=== PATIENT | male | born 2000 | race Caucasian/White ===

== ENCOUNTER 2022-10-17 09:41 | Inpatient (IN) | payer BC, OTHER ==
[2022-10-17] MEDS ORDERED: Boostrix 0.5 ML (Tdap) VIAL (>/=7 yrs of age) ONE (09:43)
[2022-10-17] MEDS ORDERED: Fentanyl 100 MCG/2 ML VIAL ONE (09:43)
[2022-10-17] MEDS ORDERED: CEFAZOLIN 2 GM VIAL ONE (09:43)
[2022-10-17 10:09] LABS: #Basophils 0.1 thou/uL (0.0-0.2); #Lymphocytes 1.8 thou/uL (1.20-3.40); #Monocytes 0.4 thou/uL (0.11-0.59); #Neutrophils 8.6 thou/uL (1.40-6.50); %Basophils 0.6 % (0.0-1.0); %Eosinophils 0.1 % (0.0-10.0); %Lymphocytes 16.3 % (21.0-51.0); Hemoglobin 13.2 g/dL (14.0-18.0); Mean Corpuscular HGB CONC 33.8 g/dL (32.0-36.0); Mean Corpuscular Hemoglobin 31.2 pg (27.0-31.0); Mean Corpuscular Volume 92.1 fl (78.0-98.0); Mean Platelet Volume 8.3 fL (7.4-10.4); Platelet Count 310 10x3/uL (130-400); RBC Distribution Width 11.3 % (11.5-14.5); Red Blood Cell (RBC) Count 4.23 mill/uL (4.70-6.10); White Blood Cell (WBC) Count 10.9 10x3/uL (4.8-10.8)
[2022-10-17] MEDS ORDERED: Ondansetron PF 4 MG/2 ML Vial ONE ×2 (10:23→11:51)
[2022-10-17] MEDS ORDERED: Ketamine 50 MG/ML (10ML VIAL) ONE ×2 (10:23→11:18)
[2022-10-17 10:26] LABS: Prothrombin Time 14.1 sec (12.0-14.7)
[2022-10-17 10:32] LABS: Acetaminophen Less than 10.0 mcg/mL (10.0-30.0); Alcohol Less than 10 mg/dL (Less than 10); Salicylate Less than 8.0 mg/dL (15.0-30.0)
[2022-10-17 10:33] LABS: Actual Bicarbonate (HCO3v) 17 mEq/L (22-28); Analyzer IN Cardio ER; Base Excess -9.3 mEq/L (-2.0 to +3.0); Calcium, Ionized (venous) 1.07 mmol/L (1.16-1.32); Chloride (VBG) 93 mmol/L (98-106); Hemoglobin (Hb) 10.6 g/dL (13.2-17.3); Potassium (VBG) 4.98 mmol/L (3.70-5.30); Sodium 127.3 mmol/L (133-146); pH (venous) 7.26 (7.32-7.43)
[2022-10-17 10:35] LABS: ALT (SGPT) 13 U/L (8-55); AST (SGOT) 13 U/L (5-34); Albumin 3.7 g/dL (3.5-5.0); Alkaline Phosphatase 73 U/L (40-110); Anion Gap 25 mmol/L (10-20); BUN (Urea Nitrogen) 14 mg/dL (8.9-20.6); Bilirubin, Total 0.9 mg/dL (0.2-1.2); Calc. Creatinine Clearance 0 mL/min (70-130); Carbon Dioxide 16 mmol/L (22-29); Chloride 95 mmol/L (98-107); Estimated GFR 81; Globulin 2.2 g/dL (2.4-3.5); Potassium 4.5 mmol/L (3.5-5.1); Protein, Total 5.9 g/dL (6.0-8.3); Sodium 131 mmol/L (136-145)
[2022-10-17 10:40] LABS: Glucose 738 mg/dL (70-105)
[2022-10-17] MEDS ORDERED: HYDROmorphone 0.5 MG/0.5 ML SYRINGE ONE ×5 (10:54→15:39)
[2022-10-17] MEDS ORDERED: INSULIN REGULAR IN 0.9 % NACL 100 UNIT/100 ML BAG ONE (11:03)
[2022-10-17] MEDS ORDERED: Midazolam HCl 2 mg/2 ml Vial ONE (11:18)
[2022-10-17] MEDS ORDERED: fentaNYL PF 100 MCG/2 ML SYRINGE ONE (11:18)
[2022-10-17] MEDS ORDERED: Iopamidol-370 76% 500 ML 1 ML ONE (11:36)
[2022-10-17] MEDS ORDERED: PROPOFOL 200 MG/20 ML VIAL ONE (11:51)
[2022-10-17] MEDS ORDERED: Lidocaine 1% PF 5 ML VIAL ONE (11:51)
[2022-10-17] MEDS ORDERED: NEOSTIGMINE 3 MG/3 ML SYR 3 MG/3 ML SYRINGE ONE (11:51)
[2022-10-17] MEDS ORDERED: Succinylcholine Chloride 100 MG/5 ML SYRINGE FS ONE (11:51)
[2022-10-17] MEDS ORDERED: PHENYLEPHRINE-NS 100 MCG/ML 10 ML SYRINGE ONE (11:51)
[2022-10-17] MEDS ORDERED: Rocuronium Bromide 10 MG/ML (10ML VIAL) ONE (11:51)
[2022-10-17] MEDS ORDERED: Glycopyrrolate 0.2 MG/ML 5 ML SYRINGE ONE (11:51)
[2022-10-17] MEDS ORDERED: Metoclopramide HCl 10 MG/2 ML VIAL ONE (11:51)
[2022-10-17] MEDS ORDERED: Albumin 5% 500 ML ONE (12:16)
[2022-10-17] MEDS ORDERED: SUGAMMADEX SODIUM 200 MG/2 ML VIAL ONE (12:19)
[2022-10-17] MEDS ORDERED: Morphine 4 MG/ML VIAL SLOW IVP PRN (12:24)
[2022-10-17] MEDS ORDERED: Acetaminophen 325 MG TAB PO PRN (12:24)
[2022-10-17] MEDS ORDERED: Ipratropium/Albuterol 3 ML NEB NEB PRN (12:24)
[2022-10-17] MEDS ORDERED: Morphine 2 MG/ML VIAL SLOW IVP PRN (12:24)
[2022-10-17] MEDS ORDERED: Ondansetron PF 4 MG/2 ML Vial IVP PRN (12:24)
[2022-10-17] MEDS ORDERED: hydrALAZINE 20 MG/ML VIAL SLOW IVP PRN (12:24)
[2022-10-17] MEDS ORDERED: NS 0.9% w/ 20 MEQ KCL 1,000 ML IV PRN ×2 (12:29)
[2022-10-17] MEDS ORDERED: Dextrose 5 %-0.45 % NaCl 1,000 ML IV PRN (12:29)
[2022-10-17] MEDS ORDERED: Sodium Chloride 0.9% 1,000 ML IV PRN ×4 (12:29)
[2022-10-17] MEDS ORDERED: Dextrose 50% Abboject 50 ML SYRINGE SLOW IVP PRN (12:29)
[2022-10-17] MEDS ORDERED: Electrolyte Replacement Protocol 1 EACH IVPB SCH (12:29)
[2022-10-17] MEDS ORDERED: HUMULIN R 100 UNITS in Sodium Chloride 0.9% 100 ML IVPB SCH (12:30)
[2022-10-17] MEDS ORDERED: Morphine Sulfate 2 MG/ML SYRINGE SLOW IVP PRN (13:10)
[2022-10-17] MEDS ORDERED: Promethazine HCl 25 MG/ML VIAL IM PRN (13:10)
[2022-10-17] MEDS ORDERED: Meperidine HCl/PF 25 MG/ML VIAL SLOW IVP PRN (13:10)
[2022-10-17] MEDS ORDERED: Ondansetron HCl/PF 4 MG/2 ML Vial IVP PRN (13:10)
[2022-10-17] MEDS ORDERED: HYDROmorphone 2 MG/ML VIAL SLOW IVP PRN (13:10)
[2022-10-17] MEDS ORDERED: Promethazine HCl 25 MG/ML VIAL ONE (14:02)
[2022-10-17 15:23] LABS: Anion Gap 17 mmol/L (10-20); BUN (Urea Nitrogen) 12 mg/dL (8.9-20.6); Calc. Creatinine Clearance 0 mL/min (70-130); Calcium 8.2 mg/dL (7.8-10.44); Carbon Dioxide 19 mmol/L (22-29); Chloride 106 mmol/L (98-107); Estimated GFR 111; Glucose 256 mg/dL (70-105); Potassium 4.3 mmol/L (3.5-5.1); Sodium 138 mmol/L (136-145)
[2022-10-17 17:58] LABS: Anion Gap 14 mmol/L (10-20); BUN (Urea Nitrogen) 10 mg/dL (8.9-20.6); Calc. Creatinine Clearance 0 mL/min (70-130); Calcium 8.2 mg/dL (7.8-10.44); Carbon Dioxide 20 mmol/L (22-29); Chloride 110 mmol/L (98-107); Estimated GFR 129; Glucose 164 mg/dL (70-105); Potassium 4.4 mmol/L (3.5-5.1); Sodium 140 mmol/L (136-145)
[2022-10-17] MEDS ORDERED: D5 1/2 NS w/20 mEq KCL 1,000 ML ONE (18:07)
[2022-10-17] MEDS: Pregabalin 50 MG CAP PO SCH (20:26)
[2022-10-17] MEDS: Famotidine/PF 20 mg/2ml Vial SLOW IVP SCH (20:27)
[2022-10-17] MEDS: Sodium Chloride 0.9% 1,000 ML IV SCH ×2 (20:27→20:59)
[2022-10-17 20:44] LABS: Anion Gap 14 mmol/L (10-20); BUN (Urea Nitrogen) 9 mg/dL (8.9-20.6); Calc. Creatinine Clearance 0 mL/min (70-130); Calcium 8.3 mg/dL (7.8-10.44); Carbon Dioxide 20 mmol/L (22-29); Chloride 109 mmol/L (98-107); Estimated GFR 129; Glucose 181 mg/dL (70-105); Potassium 4.5 mmol/L (3.5-5.1); Sodium 138 mmol/L (136-145)
[2022-10-17] MEDS: D5 1/2 NS w/20 mEq KCL 1,000 ML IV PRN (21:00)
[2022-10-17 22:11] VITALS: BMI 22.6
[2022-10-18] MEDS: D5 1/2 NS w/20 mEq KCL 1,000 ML IV PRN (01:13)
[2022-10-18 03:52] LABS: #Lymphocytes 2.8 thou/uL (1.20-3.40); #Monocytes 0.5 thou/uL (0.11-0.59); #Neutrophils 4.2 thou/uL (1.40-6.50); %Basophils 0.5 % (0.0-1.0); %Eosinophils 0.2 % (0.0-10.0); %Lymphocytes 37.6 % (21.0-51.0); %Monocytes 6.6 % (0.0-10.0); %Neutrophils 55.1 % (42.0-75.0); Hemoglobin 10.3 g/dL (14.0-18.0); Mean Corpuscular HGB CONC 33.9 g/dL (32.0-36.0); Mean Corpuscular Hemoglobin 31.6 pg (27.0-31.0); Mean Corpuscular Volume 93.3 fl (78.0-98.0); Mean Platelet Volume 7.7 fL (7.4-10.4); Platelet Count 224 10x3/uL (130-400); RBC Distribution Width 11.3 % (11.5-14.5); Red Blood Cell (RBC) Count 3.26 mill/uL (4.70-6.10); White Blood Cell (WBC) Count 7.6 10x3/uL (4.8-10.8)
[2022-10-18 04:00] LABS: INR-International Normal Ratio 1.1; Prothrombin Time 14.3 sec (12.0-14.7)
[2022-10-18 04:01] LABS: PTT 19.2 sec (22.9-36.1)
[2022-10-18 04:17] LABS: Phosphorus 2.7 mg/dL (2.3-4.7)
[2022-10-18 04:21] LABS: Anion Gap 9 mmol/L (10-20); BUN (Urea Nitrogen) 4 mg/dL (8.9-20.6); Calc. Creatinine Clearance 145 mL/min (70-130); Calcium 7.8 mg/dL (7.8-10.44); Carbon Dioxide 24 mmol/L (22-29); Chloride 108 mmol/L (98-107); Estimated GFR 132; Glucose 154 mg/dL (70-105); Magnesium 1.6 mg/dL (1.6-2.6); Potassium 3.3 mmol/L (3.5-5.1); Sodium 138 mmol/L (136-145)
[2022-10-18] MEDS: Sodium Chloride 0.9% 1,000 ML IV SCH (04:51)
[2022-10-18] MEDS ORDERED: Dextrose 5% in Water 1,000 ML IV PRN (04:56)
[2022-10-18] MEDS ORDERED: Dextrose 50% Abboject 50 ML SYRINGE SLOW IVP PRN (04:56)
[2022-10-18] MEDS ORDERED: Insulin Regular 300 UNITS/3 ML VIAL SC SCH (05:00)
[2022-10-18] MEDS ORDERED: Magnesium Sulfate In Water 4 GM in Premix Bag 1 BAG IVPB SCH (05:30)
[2022-10-18] MEDS ORDERED: Potassium Phosphate 30 MMOL in Sodium Chloride 0.9% 250 ML 250 ML IVPB SCH (05:30)
[2022-10-18] MEDS: traMADol HCl 50 MG TAB PO SCH ×3 (05:35→18:03)
[2022-10-18] MEDS ORDERED: Acetaminophen 325 MG TAB PO SCH (07:30)
[2022-10-18] MEDS: Pregabalin 50 MG CAP PO SCH ×2 (09:07→20:54)
[2022-10-18] MEDS: Famotidine/PF 20 mg/2ml Vial SLOW IVP SCH ×2 (09:08→20:54)
[2022-10-18] MEDS: Insulin Glargine 30 UNITS/0.3 ML VIAL SC SCH (09:08)
[2022-10-18] MEDS: Senokot S 8.6-50 MG TAB PO SCH ×2 (09:11→20:56)
[2022-10-18] MEDS: Polyethylene Glycol 3350 17 GM Packet PO SCH (09:12)
[2022-10-18] MEDS: HumaLOG 300 UNITS/3 ML VIAL SC PRN ×3 (11:57→20:59)
[2022-10-18] MEDS: Acetaminophen 325 MG TAB PO SCH (18:04)
[2022-10-18] MEDS ORDERED: Insulin Glargine 30 UNITS/0.3 ML VIAL SC SCH (21:00)
[2022-10-19] MEDS: traMADol HCl 50 MG TAB PO SCH ×5 (00:02→23:42)
[2022-10-19] MEDS: Acetaminophen 325 MG TAB PO SCH ×5 (00:02→23:42)
[2022-10-19] MEDS: HumaLOG 300 UNITS/3 ML VIAL SC PRN ×3 (04:09→17:45)
[2022-10-19] MEDS: Pregabalin 50 MG CAP PO SCH ×2 (09:04→20:26)
[2022-10-19] MEDS: Famotidine 20 MG TAB PO SCH ×2 (09:07→20:26)
[2022-10-19] MEDS: Senokot S 8.6-50 MG TAB PO SCH ×2 (09:07→20:26)
[2022-10-19] MEDS: Polyethylene Glycol 3350 17 GM Packet PO SCH (09:07)
[2022-10-19] MEDS: Insulin Glargine 30 UNITS/0.3 ML VIAL SC SCH ×2 (09:07→20:27)
[2022-10-19] MEDS: traMADol HCl 50 MG TAB PO PRN (15:42)
[2022-10-19] MEDS: cycloSPORINE 0.05% Ophthalmic Droperette EA EYE SCH (20:40)
[2022-10-19] MEDS ORDERED: Non-Formulary Item 1 EACH (Insulin Glargine,Hum.Rec.Anlog [Basaglar Kwikpen U-100] 100 UN SQ SCH (21:00)
[2022-10-19] MEDS ORDERED: cycloSPORINE 0.05% Ophthalmic Droperette EA EYE SCH (21:00)
[2022-10-20] MEDS: Acetaminophen 325 MG TAB PO SCH ×4 (06:11→23:16)
[2022-10-20] MEDS: traMADol HCl 50 MG TAB PO SCH ×4 (06:12→23:15)
[2022-10-20] MEDS: HumaLOG 300 UNITS/3 ML VIAL SC PRN ×2 (06:30→16:59)
[2022-10-20] MEDS: Senokot S 8.6-50 MG TAB PO SCH ×2 (08:19→20:40)
[2022-10-20] MEDS: Polyethylene Glycol 3350 17 GM Packet PO SCH (08:19)
[2022-10-20] MEDS: cycloSPORINE 0.05% Ophthalmic Droperette EA EYE SCH ×2 (08:20→20:41)
[2022-10-20] MEDS: Pregabalin 50 MG CAP PO SCH ×2 (08:20→20:40)
[2022-10-20] MEDS: traMADol HCl 50 MG TAB PO PRN (17:06)
[2022-10-20] MEDS: Insulin Glargine 30 UNITS/0.3 ML VIAL SC SCH (20:39)
[2022-10-21] MEDS: traMADol HCl 50 MG TAB PO SCH ×2 (04:51→12:22)
[2022-10-21] MEDS: Acetaminophen 325 MG TAB PO SCH ×3 (04:52→18:26)
[2022-10-21] MEDS: Senokot S 8.6-50 MG TAB PO SCH ×2 (09:46→20:58)
[2022-10-21] MEDS: Pregabalin 50 MG CAP PO SCH ×2 (09:46→20:58)
[2022-10-21] MEDS: cycloSPORINE 0.05% Ophthalmic Droperette EA EYE SCH ×2 (09:47→20:59)
[2022-10-21] MEDS: Polyethylene Glycol 3350 17 GM Packet PO SCH (09:47)
[2022-10-21] MEDS: HumaLOG 300 UNITS/3 ML VIAL SC PRN (12:23)
[2022-10-21] MEDS ORDERED: traMADol HCl 50 MG TAB PO PRN (14:03)
[2022-10-21] MEDS: Insulin Glargine 30 UNITS/0.3 ML VIAL SC SCH (20:59)
[2022-10-22] MEDS: Acetaminophen 325 MG TAB PO SCH ×4 (00:14→18:44)
[2022-10-22] MEDS: traMADol HCl 50 MG TAB PO PRN ×2 (01:02→18:45)
[2022-10-22] MEDS: HumaLOG 300 UNITS/3 ML VIAL SC PRN ×2 (01:03→17:38)
[2022-10-22] MEDS: Senokot S 8.6-50 MG TAB PO SCH ×2 (10:11→21:48)
[2022-10-22] MEDS: cycloSPORINE 0.05% Ophthalmic Droperette EA EYE SCH ×2 (10:11→21:47)
[2022-10-22] MEDS: Pregabalin 50 MG CAP PO SCH ×2 (10:11→21:43)
[2022-10-22] MEDS: Polyethylene Glycol 3350 17 GM Packet PO SCH (10:12)
[2022-10-22 17:46] LABS: Glucose 533 mg/dL (70-105)
[2022-10-22] MEDS: Insulin Glargine 30 UNITS/0.3 ML VIAL SC SCH (21:42)
[2022-10-23] MEDS: Acetaminophen 325 MG TAB PO SCH (00:17)
[2022-10-23 01:59] VITALS: BP 130/75; TEMP 98
== END 2022-10-23 01:15 | DRG 579 ==
LOC: ERS 09:41 → SDC 11:48 → IMCU/EMU 18:23 → SURG A 10-20 14:15
PROVIDERS: ADMIT Surgery; ATTEND Surgery
PROC: 0JQH0ZZ Repair Left Lower Arm Subcutaneous Tissue and Fascia, Open Approach (ICD-10-PCS; principal; 2022-10-17)
DX: S51.812A Laceration without foreign body of left forearm, initial encounter (principal); E10.10 Type 1 diabetes mellitus with ketoacidosis without coma; Z20.822 Contact with and (suspected) exposure to COVID-19; Z23 Encounter for immunization; F41.9 Anxiety disorder, unspecified; F32.A Depression, unspecified; G83.24 Monoplegia of upper limb affecting left nondominant side; X78.1XXA Intentional self-harm by knife, initial encounter; Z79.4 Long term (current) use of insulin; Z79.899 Other long term (current) drug therapy
CPT/HCPCS: 36415; 36416; 80048; 80053; 80307; 82010; 82805; 82947; 83735; 84100; 85025; 85610; 85730; 86850; 86900; 86901; 90471; 90715; 93005; 96365; 96366; 96375; G0390; J1170; J1815; J2250; J2405; J2550; J2704; J2765; J3010; J3475; J3480; J7050; P9045; Q9967; S0028; U0003; U0005

== ENCOUNTER 2022-12-09 10:55 | Inpatient (IN) | payer OTHER ==
[2022-12-09 11:33] LABS: Base Excess -15.1 mEq/L (-2.0 to +3.0); Calcium, Ionized (venous) 1.15 mmol/L (1.16-1.32); Chloride (VBG) 95 mmol/L (98-106); Hemoglobin (Hb) 16.9 g/dL (13.2-17.3); Potassium (VBG) 4.58 mmol/L (3.70-5.30); Sodium 131.2 mmol/L (133-146)
[2022-12-09 11:36] LABS: #Basophils 0.1 thou/uL (0.0-0.2); #Lymphocytes 2.7 thou/uL (1.20-3.40); #Monocytes 0.4 thou/uL (0.11-0.59); #Neutrophils 3.9 thou/uL (1.40-6.50); %Basophils 0.9 % (0.0-1.0); %Eosinophils 0.3 % (0.0-10.0); %Lymphocytes 38.4 % (21.0-51.0); %Monocytes 5.2 % (0.0-10.0); %Neutrophils 55.3 % (42.0-75.0); Hemoglobin 16.1 g/dL (14.0-18.0); Mean Corpuscular HGB CONC 32.8 g/dL (32.0-36.0); Mean Corpuscular Hemoglobin 30.7 pg (27.0-31.0); Mean Corpuscular Volume 93.4 fl (78.0-98.0); Mean Platelet Volume 8.4 fL (7.4-10.4); Platelet Count 333 10x3/uL (130-400); Red Blood Cell (RBC) Count 5.25 mill/uL (4.70-6.10)
[2022-12-09 12:00] LABS: ALT (SGPT) 12 U/L (8-55); AST (SGOT) 17 U/L (5-34); Albumin 4.6 g/dL (3.5-5.0); Alkaline Phosphatase 82 U/L (40-110); Anion Gap 30 mmol/L (10-20); BUN (Urea Nitrogen) 16 mg/dL (8.9-20.6); Bilirubin, Total 0.7 mg/dL (0.2-1.2); Calc. Creatinine Clearance 0 mL/min (70-130); Calcium 9.8 mg/dL (7.8-10.44); Carbon Dioxide 13 mmol/L (22-29); Chloride 93 mmol/L (98-107); Estimated GFR 60; Globulin 3.3 g/dL (2.4-3.5); Phosphorus 3.9 mg/dL (2.3-4.7); Potassium 4.7 mmol/L (3.5-5.1); Protein, Total 7.9 g/dL (6.0-8.3); Sodium 131 mmol/L (136-145)
[2022-12-09 12:04] LABS: Glucose 667 mg/dL (70-105)
[2022-12-09] MEDS ORDERED: INSULIN REGULAR IN 0.9 % NACL 100 UNIT/100 ML BAG ONE (12:07)
[2022-12-09] MEDS ORDERED: Acetaminophen 500 MG TAB ONE ×2 (12:22→12:25)
[2022-12-09 12:27] LABS: Bilirubin Negative (Negative); Blood, Urine Negative (Negative); Clarity Clear (Clear); Glucose, Urine (Dipstick) Greater than 1000 mg/dL (Negative); Ketone, Urine Greater than 150 mg/dL (Negative); Leukocyte Negative Leu/uL (Negative); Nitrite Negative (Negative); Protein, Urine (Dipstick) Negative (Neg-Trace); Specific Gravity, Urine 1.024 (1.002-1.036); Urobilinogen Normal mg/dL (Less than 2)
[2022-12-09 12:40] LABS: Amphetamine Not Detected (NotDetected); Barbiturates Screen Not Detected (NotDetected); Benzodiazepine Screen Not Detected (NotDetected); Cocaine Metabolite Screen Not Detected (NotDetected); Methadone Not Detected (NotDetected); Methamphetamine Not Detected (NotDetected); Opiate Screen Not Detected (NotDetected); Oxycodone Screen Not Detected (NotDetected); Phencyclidine (PCP) Not Detected (NotDetected); THC/Cannabinoid Screen Not Detected (NotDetected); Tricyclic Screen Not Detected (NotDetected)
[2022-12-09] MEDS ORDERED: NS 0.9% w/ 20 MEQ KCL 1,000 ML IV PRN ×2 (12:48)
[2022-12-09] MEDS ORDERED: Electrolyte Replacement Protocol 1 EACH IVPB ONE (12:48)
[2022-12-09] MEDS ORDERED: Dextrose 50% Abboject 50 ML SYRINGE SLOW IVP PRN (12:48)
[2022-12-09] MEDS ORDERED: Sodium Chloride 0.9% 1,000 ML IV PRN ×4 (12:48)
[2022-12-09] MEDS ORDERED: Dextrose 5 %-0.45 % NaCl 1,000 ML IV PRN (12:48)
[2022-12-09] MEDS ORDERED: HUMULIN R 100 UNITS in Sodium Chloride 0.9% 100 ML IVPB SCH (13:00)
[2022-12-09] MEDS ORDERED: Electrolyte Replacement Protocol FS PRN (13:00)
[2022-12-09] MEDS ORDERED: Magnesium 2 GM/50 ML(in water) 2 GM in Premix Bag 1 BAG IVPB SCH (13:30)
[2022-12-09] MEDS ORDERED: NS 0.9% w/ 20 MEQ KCL 1,000 ML ONE (13:31)
[2022-12-09 13:50] LABS: Anion Gap 29 mmol/L (10-20); BUN (Urea Nitrogen) 16 mg/dL (8.9-20.6); Calc. Creatinine Clearance 0 mL/min (70-130); Calcium 8.4 mg/dL (7.8-10.44); Chloride 100 mmol/L (98-107); Estimated GFR 77; Potassium 4.7 mmol/L (3.5-5.1); Sodium 132 mmol/L (136-145)
[2022-12-09 13:58] LABS: Carbon Dioxide 8 mmol/L (22-29); Glucose 528 mg/dL (70-105)
[2022-12-09] MEDS ORDERED: FLU VACC QS2022-23(6MO UP)/PF 60 MCG/0.5 ML SYRINGE IM ONE (17:00)
[2022-12-09 17:53] LABS: Anion Gap 19 mmol/L (10-20); BUN (Urea Nitrogen) 14 mg/dL (8.9-20.6); Calc. Creatinine Clearance 75 mL/min (70-130); Calcium 7.9 mg/dL (7.8-10.44); Carbon Dioxide 13 mmol/L (22-29); Chloride 106 mmol/L (98-107); Estimated GFR 78; Glucose 261 mg/dL (70-105); Potassium 4.6 mmol/L (3.5-5.1); Sodium 133 mmol/L (136-145)
[2022-12-09] MEDS: D5 1/2 NS w/20 mEq KCL 1,000 ML IV PRN ×2 (18:15→23:00)
[2022-12-09] MEDS: Famotidine/PF 20 mg/2ml Vial SLOW IVP SCH (19:57)
[2022-12-09 21:43] LABS: Anion Gap 11 mmol/L (10-20); BUN (Urea Nitrogen) 11 mg/dL (8.9-20.6); Calc. Creatinine Clearance 95 mL/min (70-130); Calcium 7.8 mg/dL (7.8-10.44); Carbon Dioxide 17 mmol/L (22-29); Chloride 108 mmol/L (98-107); Estimated GFR 105; Glucose 252 mg/dL (70-105); Potassium 4.2 mmol/L (3.5-5.1); Sodium 132 mmol/L (136-145)
[2022-12-10] MEDS: D5 1/2 NS w/20 mEq KCL 1,000 ML IV PRN ×2 (02:11→05:55)
[2022-12-10 04:37] LABS: Anion Gap 9 mmol/L (10-20); BUN (Urea Nitrogen) 7 mg/dL (8.9-20.6); Calc. Creatinine Clearance 114 mL/min (70-130); Calcium 8.2 mg/dL (7.8-10.44); Carbon Dioxide 20 mmol/L (22-29); Chloride 109 mmol/L (98-107); Estimated GFR 125; Glucose 157 mg/dL (70-105); Magnesium 1.9 mg/dL (1.6-2.6); Potassium 3.8 mmol/L (3.5-5.1); Sodium 134 mmol/L (136-145)
[2022-12-10] MEDS ORDERED: Magnesium 2 GM/50 ML(in water) 2 GM in Premix Bag 1 BAG IVPB SCH (08:00)
[2022-12-10] MEDS ORDERED: Dextrose 50% Abboject 50 ML SYRINGE IVP PRN (08:15)
[2022-12-10] MEDS ORDERED: Dextrose 5% in Water 1,000 ML IV PRN ×2 (08:15→12:20)
[2022-12-10] MEDS: Famotidine/PF 20 mg/2ml Vial SLOW IVP SCH ×2 (08:44→21:12)
[2022-12-10] MEDS ORDERED: Insulin Glargine 30 UNITS/0.3 ML VIAL SC SCH ×2 (09:00→21:00)
[2022-12-10 10:00] LABS: Hemoglobin A1c 9.5 % (4.0-6.0)
[2022-12-10] MEDS ORDERED: HumaLOG 300 UNITS/3 ML VIAL SC PRN (12:20)
[2022-12-10] MEDS ORDERED: Dextrose 50% Abboject 50 ML SYRINGE SLOW IVP PRN (12:20)
[2022-12-10] MEDS: HumaLOG 300 UNITS/3 ML VIAL SC PRN ×2 (12:31→18:05)
[2022-12-10 15:31] VITALS: BMI 20.7
[2022-12-11 04:36] VITALS: TEMP 97.7
[2022-12-11] MEDS: HumaLOG 300 UNITS/3 ML VIAL SC PRN ×2 (05:18→12:42)
[2022-12-11 07:36] LABS: Anion Gap 16 mmol/L (10-20); BUN (Urea Nitrogen) 8 mg/dL (8.9-20.6); Calc. Creatinine Clearance 104 mL/min (70-130); Carbon Dioxide 24 mmol/L (22-29); Chloride 102 mmol/L (98-107); Estimated GFR 117; Glucose 224 mg/dL (70-105); Magnesium 1.6 mg/dL (1.6-2.6); Potassium 3.7 mmol/L (3.5-5.1); Sodium 138 mmol/L (136-145)
[2022-12-11] MEDS ORDERED: Insulin Glargine 30 UNITS/0.3 ML VIAL SC SCH ×2 (08:18→09:00)
[2022-12-11] MEDS: Famotidine/PF 20 mg/2ml Vial SLOW IVP SCH (08:51)
[2022-12-11] MEDS ORDERED: Magnesium 2 GM/50 ML(in water) 2 GM in Premix Bag 1 BAG IVPB SCH (09:30)
[2022-12-11 12:14] VITALS: BP 129/83
[2022-12-12 11:13] LABS: pH (venous) 7.19 (7.32-7.43)
[2022-12-12 11:14] LABS: Actual Bicarbonate (HCO3v) 12 mEq/L (22-28)
== END 2022-12-11 15:34 | disposition home or self-care (01) | DRG 639 ==
LOC: ERS 10:55 → ERHOLD 12:47 → IMCU/EMU 14:56 → T4-A 12-10 19:01
PROVIDERS: ADMIT Internal Medicine; ATTEND Internal Medicine
DX: E10.10 Type 1 diabetes mellitus with ketoacidosis without coma (principal); F41.9 Anxiety disorder, unspecified; F32.A Depression, unspecified; Z91.14 Patient's other noncompliance with medication regimen; Z79.4 Long term (current) use of insulin; Z79.899 Other long term (current) drug therapy; Z91.51 Personal history of suicidal behavior; Z98.890 Other specified postprocedural states
CPT/HCPCS: 36415; 36416; 80048; 80053; 80306; 81003; 82010; 82805; 83036; 83735; 84100; 84484; 85025; 93005; 94760; 96361; 96374; J1650; J1815; J3475; J3480; J3490; S0028